=== PATIENT | female | born 1990 ===

== ENCOUNTER 2017-09-21 00:08 | Emergency (ER) | payer OTHER ==
[2017-09-21 00:08] VITALS: BMI 37.5
[2017-09-21 01:00] LABS: SQUAMOUS EPITHIAL 2 /hpf (0-5); URINE BILIRUBIN NEGATIVE (NEGATIVE); URINE BLOOD NEGATIVE (NEGATIVE); URINE CLARITY Clear (Clear); URINE COLOR Yellow (YELLOW); URINE GLUCOSE (UA) NORMAL (Normal); URINE LEUKOCYTE ESTERASE NEG Leu/uL (Negative); URINE PROTEIN NEGATIVE (NEGATIVE); URINE UROBILINOGEN NORMAL mg/dL (0.2-1.0)
[2017-09-21] MEDS ORDERED: Sodium Chloride 0.9% 1,000 ML IV ONE (01:03)
[2017-09-21 01:07] LABS: HCG,QUALITATIVE URINE NEGATIVE (NEGATIVE)
[2017-09-21 01:22] LABS: BASO % 0.4 % (0.0-2.0); EOS # 0.3 K/uL (0.0-0.7); EOS % 3.1 % (0.0-4.0); HEMOGLOBIN 11.4 g/dL (11.0-16.0); LYMPH # 3.1 K/uL (1.0-4.3); LYMPH % 35.9 % (20.0-40.0); MEAN CELL VOLUME 72.5 fL (81.0-99.0); MEAN CORPUSCULAR HEMOGLOBIN 23.3 pg (27.0-31.0); MEAN CORPUSCULAR HGB CONC 32.1 g/dL (33.0-37.0); MEAN PLATELET VOLUME 8.4 fL (7.2-11.7); MONO # 0.7 K/uL (0.0-0.8); MONO % 8.1 % (0.0-10.0); NEUT # 4.5 K/uL (1.8-7.0); NEUT % 52.5 % (50.0-75.0); NRBC % 0.1 % (0.0-2.0); RBC 4.9 Mil/uL (3.80-5.20); RED CELL DISTRIBUTION WIDTH 16.5 % (11.5-14.5); WHITE BLOOD COUNT 8.7 K/uL (4.8-10.8)
[2017-09-21 01:28] LABS: ALB/GLOB RATIO 1.1 (1.0-2.1); ALBUMIN 4.4 g/dL (3.5-5.0); ALT/SGPT 25 U/L (9-52); AST/SGOT 26 U/L (14-36); BLOOD UREA NITROGEN 15 mg/dL (7-17); CALCIUM 9.7 mg/dl (8.6-10.4); GFR AFRICAN-AMERICAN > 60; GFR NON-AFRICAN AMERICAN > 60; LIPASE 194 U/L (23-300)
--- NOTE | 2017-09-21 02:26 | C.PDOC ---
History Of Present Illness 26 year old female, with no significant past medical history, who presents to the emergency department complaining of lower abdominal pain associated with nausea and vomiting onset for x1 week. Patient describes the pain as a cramping sensation and non-radiating. LMP x2 months ago and reports she took a home test but was negative. She denies any fever, chills, dysuria, hematuria, vaginal bleeding or discharge. No further medical complaints. PMD: Charli Daniels MD Time Seen by Provider: 09/21/17 00:37 Chief Complaint (Nursing): Abdominal Pain History Per: Patient History/Exam Limitations: no limitations Onset/Duration Of Symptoms: Days (x1 week) Current Symptoms Are (Timing): Still Present Location Of Pain/Discomfort: Other (lower) Radiation Of Pain To:: None Quality Of Discomfort: Cramping Associated Symptoms: Nausea, Vomiting. denies: Fever, Chills, Urinary Symptoms (dysuria), Other (vaginal bleeding or discharge) Past Medical History Reviewed: Historical Data, Nursing Documentation, Vital Signs Vital Signs: Last Vital Signs Temp 97.3 F L 09/21/17 02:34 Pulse 82 09/21/17 02:34 Resp 20 09/21/17 02:34 BP 118/68 09/21/17 02:34 Pulse Ox 98 09/21/17 02:34 - Medical History PMH: No Chronic Diseases Denies: Depression Surgical History: - [facility] Procedures ANESTH INJECT-SPIN CANAL (06/29/13) APPLICATION OF SPLINT (10/28/02) EXTRACTION OF POC, LOW CERVICAL, OPEN APPROACH (02/10/16) MONITORING NOS (06/25/13) INDUCT LABOR-RUPT MEMB (12/15/14) LOW CERVICAL (12/15/14) OTHER CAST APPLICATION (10/30/02) PACKED CELL TRANSFUSION (06/29/13) Family History: States: Unknown Family Hx - Social History Hx Tobacco Use: No Hx Alcohol Use: Yes Hx Substance Use: No - Immunization History Hx Tetanus Toxoid Vaccination: No Hx Influenza Vaccination: No Hx Pneumococcal Vaccination: No Review Of Systems Except As Marked, All Systems Reviewed And Found Negative. Constitutional: Negative for: Fever, Chills Gastrointestinal: Positive for: Nausea, Vomiting, Abdominal Pain (lower crampy) Genitourinary: Negative for: Dysuria, Hematuria, Vaginal Discharge, Vaginal Bleeding Physical Exam - Physical Exam Appears: Other (comfortable) Skin: Normal Color, Warm, Dry Head: Atraumatic, Normacephalic Eye(s): bilateral: Normal Inspection, PERRL, EOMI Neck: Normal ROM Cardiovascular: Rhythm Regular, No Murmur Respiratory: Normal Breath Sounds, No Wheezing Gastrointestinal/Abdominal: Tenderness (mild suprapubic), No Guarding, No Rebound, No Other (McBurney's point) Back: Normal Inspection, No CVA Tenderness, No Vertebral Tenderness Pelvic: Normal External Exam, Normal Speculum Exam, Normal Bimanual Exam, No Vaginal Bleeding, No Vaginal Discharge, No Cervical Motion Tenderness, No Adnexal Tenderness Extremity: Normal ROM (upper and lower extremities), No Deformity, No Swelling Neurological/Psych: Oriented x3 ED Course And Treatment - Laboratory Results Result Diagrams: 09/21/17 01:11 09/21/17 01:11 Disposition Counseled Patient/Family Regarding: Studies Performed, Diagnosis, Need For Followup - Disposition Referrals: [facility] [Outside] [facility] [Outside] [facility] [Outside] Disposition: HOME/ ROUTINE Disposition Time: 02:25 Condition: STABLE Additional Instructions: FOLLOW UP WITH GAMING INVESTIGATOR WITHIN 1 WEEK USE MEDICATION NEEDED FOR PAIN RETURN TO ER IF SYMPTOMS WORSEN Prescriptions: Naproxen 375 mg PO BID PRN #20 tablet PRN Reason: pain Instructions: Absent or Irregular Periods, Acute Abdomen (Belly Pain), Adult ( DC) Forms: W-21 (Amharic) Print Language: FRENCH - Clinical Impression Clinical Impression: Irregular menses, Pelvic pain
[2017-09-21 02:35] VITALS: BP 118/68; PULSE 82; RESP 20; TEMP 97.3; O2SAT 98
== END 2017-09-21 02:35 | disposition home or self-care (01) ==
LOC: C.ER 00:08
DX: R10.2 Pelvic and perineal pain (principal); N92.6 Irregular menstruation, unspecified
CPT/HCPCS: 80053; 81001; 83690; 84702; 84703; 85025; 96360; 99285; J7040